=== PATIENT | female | born 1990 | race Two or more races ===

== ENCOUNTER 2016-09-17 12:55 | Emergency (ER) | payer OTHER ==
[2016-09-17 13:34] VITALS: BP 120/80; PULSE 88; RESP 16; TEMP 98.1; O2SAT 100
--- NOTE | 2016-09-17 13:42 | UCPHY ---
H & P Time Seen by Provider: 09/17/16 13:39 Patient Type: New HPI/ROS: HPI: 25-year-old female presents to urgent care with chief concern canker sores in her lower lip. Onset 6 days ago. Reports pain, swollen right anterior cervical lymph nodes. Denies recent infections. Denies fever, chills, URI symptoms, sore throat, dysphagia, nausea or vomiting. Has used ibuprofen and Orajel with some improvement. ROS:10 point review of systems is negative other than as stated in HPI Smoking Status: Never smoked Physical Exam: Vital signs stable, reviewed by me General: Awake, alert, calm, cooperative. No acute distress. Head: Normalocephalic. Atraumatic. EENT: PERRLA. EOMI. No pallor or injection. Anicteric. No nystagmus. Oropharynx without erythema. Uvula midline. Lower lip buccal mucosa right side with 3., 0.25 cm diameter abscess ulcers. Neck: Supple, nontender. No lymphadenopathy. Full range of motion. Neuro: Alert. Oriented x 3. Speech clear. Nonfocal cranial nerves throughout. Sensation intact all extremities. Strength 5+ all extremities. Follows commands. Skin: Skin warm, dry, intact. Skin turgor normal. Extremities: Full range of motion in all 4 extremities. Mental status: Interactive, appropriate, well-groomed. Constitutional: Initial Vital Signs Temperature (C) 36.7 C 09/17/16 13:32 Heart Rate 88 09/17/16 13:32 Respiratory Rate 16 09/17/16 13:32 Blood Pressure 120/80 09/17/16 13:32 O2 Sat (%) 100 09/17/16 13:32 O2 Delivery Mode Room Air Allergies/Adverse Reactions: amoxicillin trihydrate [From Augmentin] Allergy (Verified 09/17/16 13:32) Penicillins Allergy (Verified 09/17/16 13:32) potassium clavulanate [From Augmentin] Allergy (Verified 09/17/16 13:32) sulfamethoxazole [From Bactrim] Allergy (Verified 09/17/16 13:32) trimethoprim [From Bactrim] Allergy (Verified 09/17/16 13:32) Home Medications: Medication Instructions Recorded Bcp 09/17/16 Triamcinolone Acetonide [Oralone] 1 heena TP TID PRN #1 paste..gm. 09/17/16 Medical Decision Making ED Course/Re-evaluation: Afebrile nontoxic 25-year-old presents to urgent care with apthous ulcers. Clinically, this lesions are apthous ulcers, not consistent with HSV Differential Diagnosis: Aphthous ulcer, HSV Departure - Departure Disposition: Home, Routine, Self-Care Clinical Impression: Oral aphthous ulcer Condition: Good Instructions: Canker Sores (ED) Additional Instructions: Plan: Use the triamcinolone steroid paste 2-3 times daily, always at bedtime, while symptoms persist You may use 600 mg of ibuprofen every 6 hours for fever, inflammation, or pain. Always take ibuprofen with food and stay well hydrated while taking. Do not exceed the maximum allowable dose in a 24 hour period which is 2400 mg. You may use 1000mg of Tylenol every 8 hours. This may be staggered with the ibuprofen. Do not exceed the maximum dose in a 24 hour period which is 3 GM or 3000 mg. May continue to use Orajel, use at least 2 hours after application of a steroid cream Follow up with primary care late next week for symptoms that worsen or do not resolve Referrals: NONE *PRIMARY CARE P,. [Primary Care Provider] - As per Instructions Francesca Jacobs, [employer] PROGRAM COORDINATOR [Certified Nurse Practioner] - As per Instructions Prescriptions: Triamcinolone Acetonide [Oralone] 1 heena TP TID PRN #1 paste..gm. PRN Reason: ulcer - PQRS PQRS Measurement: Not applicable
== END 2016-09-17 14:09 | disposition home or self-care (01) ==
LOC: CED 12:55
DX: K12.0 Recurrent oral aphthae (principal); Z88.0 Allergy status to penicillin
CPT/HCPCS: 99203-PO; G0463-PO